=== PATIENT | male | born 1950 | race Caucasian/White ===

== ENCOUNTER 2022-01-04 15:13 | Emergency (ER) | payer MEDICARE, OTHER ==
[2022-01-04 19:54] LABS: BASOPHIL 0.9 % (0-2); HCT 43.1 % (42.0-52.0); HGB 14.8 g/dl (13.2-18.0); MCH 29.7 pg (25.0-31.0); MCHC 34.3 g/dL (32.0-36.0); MCV 86.5 fL (78.0-100.0); MONOCYTE 6.2 % (0-12); MPV 9.5 fL (6.0-9.5); NEUTROPHIL 67.5 % (41-80); NRBC 0; PLT 207 K/uL (150-400); RBC 4.98 M/uL (4.70-6.00); RDW 13.3 % (11.5-14.0); WBC 9.3 K/uL (4.0-10.5)
[2022-01-04 20:05] LABS: INR 1.13 (0.9-1.2); PROTHROMBIN TIME 14.2 SECONDS (11.9-13.9); PTT 35.6 SECONDS (24.9-34.6)
[2022-01-04 20:12] LABS: ALBUMIN 3.7 g/dL (3.4-5.0); BILIRUBIN - TOTAL 0.5 mg/dL (0.2-1.0); CREATININE 1.25 mg/dL (0.67-1.17); GLOBULIN (CALCULATION) 3.7 g/dL; POTASSIUM 4.2 mmol/L (3.5-5.1); TOTAL PROTEIN 7.4 g/dL (6.4-8.2)
== END 2022-01-04 20:48 | disposition home or self-care (01) ==
LOC: FER 15:13
PROVIDERS: Internal Medicine
DX: I48.91 Unspecified atrial fibrillation (principal); I10 Essential (primary) hypertension; K21.9 Gastro-esophageal reflux disease without esophagitis; Z79.899 Other long term (current) drug therapy
CPT/HCPCS: 36415; 80053; 84484; 85025; 85610; 85730; 93005